=== PATIENT | female | born 1935 | race Caucasian/White ===

== ENCOUNTER 2020-02-17 10:35 | Outpatient (CLI) | payer MEDICARE, SELFPAY ==
--- NOTE | ~2020-02-17 | XR_ITS ---
XR abdomen/kub 1V DATE: 02/17/2020 10:57 INDICATION: Kidney calculus TECHNIQUE: AP projection, 2 views COMPARISON: 02/17/[address] abdomen pelvis FINDINGS: There is an approximately 7 x 12 mm calcified density overlying the left ureter pelvic junc tion area, corresponding to the left ureter pelvic junction calculus noted on the current CT abdomen pelvis. There is gaseous distention of some of the colon, particularly the sigmoid colon, without apparent ob struction. No intraperitoneal free air is evident. No visceromegaly is detected. IMPRESSION: Approximately 7 x 12 millimeter calcified calculus at left ureteropelvic junction Reviewed, dictated and finalized at [facility]. Reviewed, dictated and finalized at location B. IMPRESSION: Approximately 7 x 12 millimeter calcified calculus at left ureterop elvic junction
--- NOTE | ~2020-02-17 | CT_ITS ---
EXAMINATION: CT abdomen pelvis wo con DATE: 02/17/2020 11:11 INDICATION: Kidney calculus TECHNIQUE: Computed tomography (CT) of the abdomen and pelvis was performed without intravenous contr ast. Automated exposure control and iterative reconstruction technique were employed. Exam dose: 978 .75 mGy-cm total exam DLP. COMPARISON: 02/17/2020 KUB FINDINGS: Heart size is within normal range. Coronary artery calcification. 4 mm probable calcified right lower lobe pulmonary granuloma (series 4 image 1). Several millimeter p robable calcified pulmonary granuloma at the left posterior costophrenic gutter. There is mild discoi d atelectasis or scarring at the lung bases. No basilar consolidation. Status post cholecystectomy. No hepatic space-occupying mass lesion or intrahepatic or extrahepatic b ile duct dilatation. No pancreatic mass lesion, calcification or ductal dilatation. Normal splenic si ze. Normal morphology of the adrenal glands. There is a nonobstructing 3 mm right renal calculus. There is an approximately 7 x 8 x 12 mm left ureteropelvic junction calculus with attenuation of appr oximately 1280 Hounsfield units. There are bilateral parapelvic renal cysts. There is a very small right renal cortical cyst. There is atherosclerotic calcification of the abdominal aorta and particularly at the origin of the s uperior mesenteric artery as well as celiac trunk. Calcifications at the origins of the renal arterie s. No abdominal aortic aneurysm. No intraperitoneal or retroperitoneal or pelvic mass lesion or adeno helene or ascites. Status post hysterectomy. The urinary bladder is unremarkable. No bowel obstruction, bowel wall thickening, pneumatosis or intraperitoneal free air. There is diffuse idiopathic skeletal hyperostosis of the thoracic spine. There is severe degenerative disease and mild retrolisthesis at L5-S1. There is moderately severe deg enerative disc disease at L4-5 with grade 1 anterolisthesis secondary to apophyseal joint degenerativ e changes. Osteopenia. IMPRESSION: 7 x 8 x 12 moderate left ureteropelvic junction calculus (1280 Hounsfield units). Nonobstructing 3 mm right renal calculus Bilateral parapelvic renal cysts, small right cortical cyst Status post hysterectomy Status post cholecystectomy Reviewed, dictated and finalized at [facility]. Reviewed, dictated and finalized at location B. IMPRESSION: 7 x 8 x 12 moderate left ureteropelvic junction calculus (1280 Stormy nsfield units). Nonobstructing 3 mm right renal calculus Bilateral parapelvic renal cysts, small right cortical cyst Status post hysterectomy Status post cholecystectomy
== END 2020-02-17 10:36 | disposition home or self-care (01) ==
PROVIDERS: PCP Internal Medicine; Visit Provider Urology
DX: N28.1 Cyst of kidney, acquired (principal); N20.2 Calculus of kidney with calculus of ureter; Z90.49 Acquired absence of other specified parts of digestive tract
CPT/HCPCS: 74018; 74176

== ENCOUNTER 2020-05-04 00:58 | Outpatient (CLI) | payer MEDICARE, SELFPAY ==
[2020-05-04 19:19] LABS: SARS-CoV-2 RNA PCR Negative
== END 2020-05-04 00:59 | disposition home or self-care (01) ==
LOC: ANHCOVIDDT 00:58
PROVIDERS: PCP Internal Medicine; Visit Provider Urology
DX: Z01.812 Encounter for preprocedural laboratory examination (principal); Z20.828 Contact with and (suspected) exposure to other viral communicable diseases
CPT/HCPCS: 87635; C9803; U0003

== ENCOUNTER 2020-05-06 00:14 | Day surgery (SDC) | payer MEDICARE, SELFPAY ==
[2020-04-27 12:49] VITALS: BMI 40.4
--- NOTE | 2020-04-30 11:40 | PM.IMHP ---
H&P: HPI History of Present Illness Date/Time: 04/30/20 11:40 Chief complaint: Left Renal Stone Narrative: Marium Vera is a 84 year old female with a 12mm Left UPJ stone Review of Systems Review of Systems: All systems reviewed & are unremarkable except as noted in HPI and below PMFSH Social History Social History Smoking status: Never smoker Alcohol intake: never Substance use: never Spiritual care concerns: No Meds Home Medications and Allergies Home Medications Medication Instructions Recorded Confirmed Type metoprolol tartrate 50 mg PO HS 04/27/20 04/27/20 History metoprolol tartrate 100 mg PO QAM 04/27/20 04/27/20 History simvastatin 40 mg PO HS 04/27/20 04/27/20 History trospium 20 mg PO BID 04/27/20 04/27/20 History Allergies Allergy/AdvReac Type Severity Reaction Status Date / Time acyclovir [From Zovirax] AdvReac Unknown Unverified 04/27/20 13:27 ceftriaxone [From Rocephin] AdvReac Unknown Unverified 04/27/20 13:27 ciprofloxacin [From Cipro] AdvReac Unknown Unverified 04/27/20 13:27 doxycycline AdvReac Unknown Unverified 04/27/20 13:27 mirabegron [From Myrbetriq] AdvReac Unknown Unverified 04/27/20 13:27 moxifloxacin [From Avelox] AdvReac Unknown Unverified 04/27/20 13:27 nitrofurantoin AdvReac Unknown Unverified 04/27/20 13:27 Exam Const: General: no acute distress HENMT: Mouth: Yes moist mucous membranes Eyes: EOM: EOMs intact bilaterally Neck: Neck: supple Resp: Effort & Inspection: normal respiratory effort GI: GI Palp: Yes Soft to palpation Skin: General skin exam: no rashes or lesions noted Neuro: General: gait normal Extrem: General: normal to inspection Psych: Affect: normal affect Assessment and Plan Assessment and plan (1) Obstruction of left ureteropelvic junction (UPJ) due to stone: Code(s): N20.1 - Calculus of ureter Status: Acute Assessment and Plan: Left ESWL with stent
[2020-05-06] VITALS (7 sets, daily range): BP systolic 135–177; BP diastolic 48–79; PULSE 52–59; RESP 10–20; TEMP 36.2–36.9; O2SAT 95–100
--- NOTE | ~2020-05-06 | XR_ITS ---
EXAMINATION: XR abdomen/kub 1V DATE: 05/06/2020 11:43 INDICATION: Left renal stone for prelithotripsy evaluation. TECHNIQUE: A supine view of the abdomen on 2 radiographs was obtained. COMPARISON: CT and KUB dated 02/17/2020 FINDINGS: 11 x 6 mm stone remains at the left ureteropelvic junction. A few linear atherosclerotic calcificatio ns in the pelvis. Cholecystectomy clips in right upper quadrant. Scattered gas and stool in the colon . No dilated gas-filled loops of bowel to suggest obstruction. Moderate lumbar spondylosis. IMPRESSION: 1. Unchanged 11 x 6 mm stone at the left ureteropelvic junction. Reviewed, dictated and finalized at location A.
--- NOTE | 2020-05-06 07:28 | WPDHPUPDATE1 ---
History and Physical Update Update Date/Time: 05/06/20 07:28 History and Physical has been reviewed, including an updated exam of the patient. There are NO changes in the patient's condition. Risks, benefits, and alternatives have been discussed and questions answered. Patient agrees to proceed with procedure.
[2020-05-06] MEDS: LACTATED RINGERS 1,000 ML 30 ML IV CONT ×2 (12:30→14:55)
--- NOTE | 2020-05-06 13:14 | WPDANESEPPF ---
Anes - Initial Pre Proc Eval Procedure: Operation Date: 05/06/20 13:30 Proposed Procedures p Left Renal Extracorporeal Shock Wave Lithotripsy, Left Stent Placement - Rusty Sparks MD Date/Time: 05/06/20 13:14 Surgeon: Rusty Sparks MD Pre Op Diagnosis: Left Renal Stone Patient Data Age: 84 Gender: F Height: 5 ft 6 in Weight: 118.6 kg Last Vital Signs Temp 36.9 C 05/06/20 12:30 Pulse 54 L 05/06/20 12:30 Resp 18 05/06/20 12:30 BP 135/48 L 05/06/20 12:30 Pulse Ox 95 05/06/20 12:30 Allergies Allergy/AdvReac Type Severity Reaction Status Date / Time acyclovir [From Zovirax] AdvReac Unknown Unverified 05/06/20 12:48 ceftriaxone [From Rocephin] AdvReac Unknown Unverified 05/06/20 12:48 ciprofloxacin [From Cipro] AdvReac Unknown Unverified 05/06/20 12:48 doxycycline AdvReac Unknown Unverified 05/06/20 12:48 mirabegron [From Myrbetriq] AdvReac Unknown Unverified 05/06/20 12:48 moxifloxacin [From Avelox] AdvReac Unknown Unverified 05/06/20 12:48 nitrofurantoin AdvReac Unknown Unverified 05/06/20 12:48 Home Medications Medication Instructions Recorded Confirmed Type metoprolol tartrate 50 mg PO HS 04/27/20 04/27/20 History metoprolol tartrate 100 mg PO QAM 04/27/20 04/27/20 History simvastatin 40 mg PO HS 04/27/20 04/27/20 History trospium 20 mg PO BID 04/27/20 04/27/20 History cephalexin 500 mg PO Q12H #10 cap 05/06/20 Rx hydrocodone-acetaminophen [[place]] 1 tablet PO Q4H PRN #20 tablet 05/06/20 Rx Patient hx anesthesia problems: none Family hx anesthesia problems: none PMFSH Past Medical History Medical History (Updated 05/06/20 @ 13:14 by Scott Gonzalez MD) HTN (hypertension) Hyperlipidemia Morbid obesity Social History Social History Smoking status: Never smoker Alcohol intake: never Substance use: never Living arrangements: with family Spiritual care concerns: No Anes - Eval Final PreProcedure Day of Procedure 05/06/20 13:14 Patient weight: morbidly obese Heart: regular rate and rhythm Lungs: clear to auscultation Airway: Mallampati scale class III and other (upper denture) Neurological: alert and oriented Last oral intake: >/= 8 hours ASA classification: III Emergent: no Anesthetic plan: proceed Anesthesia type and monitoring: general LMA and standard monitoring Informed Consent: The patient's anesthetic plan and its attendant risks and benefits were discussed with the patient/family/POA. Questions were solicited and answers provided to the satisfaction of the patient/family/POA.
[2020-05-06] MEDS: ceFAZolin 2 GM/D5W 50 ML 2 GM/50 ML BAG IVPB (14:02)
[2020-05-06] MEDS: fentaNYL CITRATE INJ (*CRX) 100 MCG/2 ML VIAL 25 MCG IV PUSH (15:32)
--- NOTE | 2020-05-06 16:39 | PM.PROC ---
Procedure Note - Detailed Date of procedure: 05/06/20 Pre-op diagnosis: Left Renal Stone Post-op diagnosis: same Procedure performed: Cystoscopy with left ureteral stent placement left extracorporeal shockwave lithotripsy Description of procedure: distal with recurrent urinary tract infections and a larger than 1 cm left renal pelvic stone. She is here today for lithotripsy. We will place a stent due to her possible infection stone risk. She was pretreated with culture specific antibiotics she understands risks of bleeding, infection, inability to break the stone. She agrees to proceed. She also understands that clearance of the stone may not solve her issues with recurrent infections.Of note Dr. Anderson and myself for both available for this case. she is correctly identified and informed consent obtained. She from the operating room. She is given general anesthesia. She was prepped and draped in a sterile fashion. Time-out performed. Using a flexible cystoscope a 4.8 variable length stent was placed with the proximal coil in the renal pelvis. Distal coil in the bladder. She was then repositioned for lithotripsy. The stone was targeted fluoroscopy. Lithotripsy was delivered. Two thousand five hundred shocks total. Power level 4. There appeared to be good fragmentation of the stone. At the end she was awakened and transferred to the PACU in stable condition. Anesthesia: GLMA Surgeon: Rusty Sparks MD Estimated blood loss (mL): 0 Drains: Yes ( Stent in place) Packing: No Pathology: none sent Condition: stable Disposition: PACU
[2020-05-06] MEDS: ONDANSETRON INJ 4 MG/2 ML VIAL IV PUSH (16:46)
--- NOTE | 2020-05-06 17:12 | SUR.PHASEII ---
MARK FROM ANESTHESIOLOGY NOTIFIED RE: PT'S BP 183/79; PT INSTRUCTED TO TAKE BP MEDICINE ONCE SHE'S HOME; MARK OKAY'D PT TO GO HOME.
== END 2020-05-06 17:14 | disposition home or self-care (01) ==
PROVIDERS: PCP Internal Medicine; Visit Provider Urology
PROC: (CPT 50590; principal; 2020-05-06 13:30)
DX: N20.1 Calculus of ureter (principal); I10 Essential (primary) hypertension; E78.5 Hyperlipidemia, unspecified; E66.01 Morbid (severe) obesity due to excess calories; Z68.41 Body mass index [BMI] 40.0-44.9, adult
CPT/HCPCS: 50590; 52332; 74018; A9270; C1769; C2617; J0690; J2405; J2704; J3010; J7030; J7120; Q9966

== ENCOUNTER 2020-05-23 14:34 | Outpatient (CLI) | payer MEDICARE, SELFPAY ==
--- NOTE | ~2020-05-23 | XR_ITS ---
XR abdomen/kub 1V 05/23/2020 15:03 Indication: Post lithotripsy. Left renal stones. Procedure: KUB Comparison: 05/06/2020 Findings: Moderate gas in bowel content overlying the kidneys limiting evaluation. There is a left in ternal ureteral stent in expected position. There is a stone overlying the proximal coil of the stent . There are pelvic calcifications, likely phleboliths. There are cholecystectomy clips. Nonobstructiv e bowel gas pattern. Moderate lumbar spondylosis. Impression: 1: Left nephrolithiasis with internal ureteral stent in expected position. Reviewed, dictated and finalized at location A. Impression: 1: Left nephrolithiasis with internal ureteral stent in expected position.
== END 2020-05-23 14:35 | disposition home or self-care (01) ==
LOC: ANHIMG 14:48
PROVIDERS: PCP Internal Medicine; Visit Provider Urology
DX: N20.0 Calculus of kidney (principal)
CPT/HCPCS: 74018

== ENCOUNTER 2020-06-01 00:23 | Outpatient (CLI) | payer MEDICARE, SELFPAY ==
[2020-06-02 03:00] LABS: SARS-CoV-2 RNA PCR Negative
== END 2020-06-01 00:24 | disposition home or self-care (01) ==
LOC: ANHCOVIDDT 00:23
PROVIDERS: PCP Internal Medicine; Visit Provider Urology
DX: Z01.812 Encounter for preprocedural laboratory examination (principal); Z20.828 Contact with and (suspected) exposure to other viral communicable diseases
CPT/HCPCS: 87635; C9803; U0003

== ENCOUNTER 2020-06-03 19:11 | Inpatient (IN) | payer MEDICARE, SELFPAY ==
[2020-05-30 15:36] VITALS: BMI 39.9
--- NOTE | 2020-06-02 12:46 | P.PNAN_ITS ---
Anes - Initial Pre Proc Eval Procedure: Operation Date: 06/03/20 13:30 Proposed Procedures p Cystoscopy, Left Ureteroscopy, Left Stone Extraction - Carlin Anderson MD Date/Time: 06/02/20 12:46 Surgeon: Carlin Anderson MD Pre Op Diagnosis: Left Ureteral Stone Patient Data Age: 84 Gender: F Height: 1.68 m Weight: 112.05 kg Allergies Allergy/AdvReac Type Severity Reaction Status Date / Time acyclovir [From Zovirax] AdvReac RASH/HIVES Unverified 06/03/20 11:46 ceftriaxone [From Rocephin] AdvReac Hives/RASH Unverified 06/03/20 11:46 ciprofloxacin [From Cipro] AdvReac HIVES/RASH Unverified 06/03/20 11:46 doxycycline AdvReac HIVES/RASH Unverified 06/03/20 11:46 mirabegron [From Myrbetriq] AdvReac Unknown Unverified 06/03/20 11:46 moxifloxacin [From Avelox] AdvReac Unknown Unverified 06/03/20 11:46 nitrofurantoin AdvReac RASH/HIVES Unverified 06/03/20 11:46 Home Medications Medication Instructions Recorded Confirmed Type metoprolol tartrate 50 mg PO HS 04/27/20 06/03/20 History metoprolol tartrate 100 mg PO QAM 04/27/20 06/03/20 History simvastatin 40 mg PO HS 04/27/20 06/03/20 History trospium 20 mg PO BID 04/27/20 06/03/20 History hydrocodone-acetaminophen [[place]] 1 tablet PO Q4H PRN #20 tablet 05/06/20 06/03/20 Rx Patient hx anesthesia problems: none Family hx anesthesia problems: none PMFSH Past Medical History Medical History (Updated 06/02/20 @ 12:47 by Guille Sy MD) Arthritis HTN (hypertension) Hyperlipidemia Morbid obesity Social History Social History Smoking status: Never smoker Alcohol intake: never Substance use: never Living arrangements: with family Spiritual care concerns: No Anes - Eval Final PreProcedure Day of Procedure 06/02/20 12:46 Patient weight: obese Heart: regular rate and rhythm Lungs: clear to auscultation and normal air movement Airway: Mallampati scale class II Neurological: alert and oriented Last oral intake: >/= 8 hours ASA classification: III Emergent: no Anesthetic plan: proceed Anesthesia type and monitoring: general LMA and ETT Informed Consent: The patient's anesthetic plan and its attendant risks and benefits were discussed with the patient/family/POA. Questions were solicited and answers provided to the satisfaction of the patient/family/POA.
[2020-06-03] VITALS (28 sets, daily range): BP systolic 86–187; BP diastolic 47–117; PULSE 57–92; RESP 10–27; TEMP 36.1–38.4; O2SAT 20–100
--- NOTE | ~2020-06-03 | XR_ITS ---
EXAMINATION: XR retrograde pyelo w/stent LT DATE: 06/03/2020 15:25 INDICATION: Renal stone extraction TECHNIQUE: 206 fluoroscopic images of the abdomen and pelvis were obtained during procedure performed by Dr. Anderson. Radiologist was not present for the imaging or procedure. The amount of fluoroscopy t anai used during this procedure was 2.5 minutes. COMPARISON: KUB dated 05/23/2020 FINDINGS: Lozenge Maker Helper images redemonstrate a left internal ureteral stent with distal loop formed at the bladder and the density representing a renal stone positioned within the proximal loop likely at the left renal p kalie. Cholecystectomy clips in right upper quadrant. Subsequent images demonstrate initially advance ment of a catheter into the distal left ureter but perforating along the midureter with initial contr ast injection excising into the retroperitoneal tissues. Subsequent images demonstrate successful adv ancement of the catheter beyond the perforation with the distal tip in the left renal pelvis. Contras t injection demonstrates mild left hydronephrosis along with a filling defect likely representing the stone at the left renal pelvis. The stone is not visualized on the final images which demonstrate pl acement of a new left internal ureteral stent with proximal tip extending into the upper pole calyx o f the left kidney and with distal tip coiled in the bladder. IMPRESSION: 1. Fluoroscopy utilized during reported fragmentation of a stone at the left renal pelvis with iatrog enic perforation of the mid left ureter during the procedure. The location of the perforation is succ essfully spanned by a new left internal ureteral stent which is in expected position at the conclusio n of the procedure. See procedure note for further detail. Reviewed, dictated and finalized at location A. WEBSPH[employer] PORTAL DEVELOPER IMPRESSION: 1. Fluoroscopy utilized during reported fragmentation of a stone at the left re nal pelvis with iatrogenic perforation of the mid left ureter during the proced ure. The location of the perforation is successfully spanned by a new left inte rnal ureteral stent which is in expected position at the conclusion of the proc edure. See procedure note for further detail.
--- NOTE | ~2020-06-03 | XR_ITS ---
EXAMINATION: XR chest 1V portable DATE: 06/03/2020 17:33 INDICATION: Shortness of breath. TECHNIQUE: A single frontal view of the chest was obtained. COMPARISON: CT abdomen and pelvis 02/17/2020 FINDINGS: Sensitivity is decreased by obesity. A calcified right lung nodule is consistent with old g ranulomatous disease. There is mild atelectasis in right perihilar region. No pleural effusion or pne umothorax. The heart size is normal. IMPRESSION: 1. Mild atelectasis in right perihilar region. Reviewed, dictated and finalized at location A. WARE RELEASE MANAGER
--- NOTE | 2020-06-03 06:33 | WPDHPUPDATE1 ---
History and Physical Update Update Date/Time: 06/03/20 06:33 History and Physical has been reviewed, including an updated exam of the patient. There are NO changes in the patient's condition. Risks, benefits, and alternatives have been discussed and questions answered. Patient agrees to proceed with procedure.
[2020-06-03] MEDS: LACTATED RINGERS 1,000 ML 30 ML IV CONT (12:10)
[2020-06-03] MEDS: ceFAZolin 2 GM/D5W 50 ML 2 GM/50 ML BAG IVPB (14:03)
--- NOTE | 2020-06-03 15:10 | PM.PROC ---
Procedure Note - Detailed Date of procedure: 06/03/20 Pre-op diagnosis: Left Ureteral Stone Post-op diagnosis: same Procedure performed: 1. Cystoscopy with left stent removal and replacement 2. Laser lithotripsy left renal stone Description of procedure: Patient is brought to the operatory she has prepped draped in routine sterile fashion while in dorsal lithotomy position after the uneventful induction of a general LMA anesthetic. Nineteen F rigid cystoscope was placed in her bladder in the tip of the indwelling stent is grasped. The stent is brought to the external urethral meatus and a 0.035 in glidewire was advanced in the left renal pelvis under fluoroscopy. The distal ureter was dilated with an 8 F 10 F dilator and a 12 F 14 F ureteral access sheath is placed. With flexible ureteroscopy I can see that there is a small rent in the medial aspect of the left ureter created by the access sheath. I placed a 7.5 F flexible ureteral scope in the left renal pelvis. Her stone is easily visualized in fractured into tiny pieces using a dusting mass in with a 273 micron holmium laser fiber at a frequency of 15 and a power of 5 joules. Stone was fragmented tiny pieces, many of which washed out spontaneously. Because of the ureteral trauma I opted not to retrieve these pieces but simply replace the 4.8 F variable length stent with the proximal coil in the renal pelvis and distal coil in the bladder. Scopes were was removed. Patient tolerated procedure well was taken recovery in good condition is presenting with ic Surgeon: Carlin Anderson MD Estimated blood loss (mL): 0 Drains: Yes (4.8F left ureteral stent) Packing: No Pathology: none sent Complications: No immediate complications Condition: stable Disposition: PACU
[2020-06-03] MEDS: ONDANSETRON INJ 4 MG/2 ML VIAL IV PUSH (15:49)
[2020-06-03] MEDS: fentaNYL CITRATE INJ (*CRX) 100 MCG/2 ML VIAL 25 MCG IV PUSH (16:10)
[2020-06-03] MEDS: PROMETHAZINE HCL 25 MG/ML AMPUL 12.5 MG IV PUSH (16:20)
--- NOTE | 2020-06-03 17:10 | PM.IMHP ---
H&P: HPI History of Present Illness Date/Time: 06/03/20 17:10 Chief complaint: Left Ureteral Stone Narrative: Marium Vera is a 84 year old female who is known to our practice having undergone ESWL 1 month ago for a 12 mm left renal pelvic stone. Time of the procedure she had an indwelling ureteral stent. Postoperatively she reported a 2 to three-day history of atypical abdominal discomfort just generalized feeling poorly. Unfortunately, stone fragmented little, if any, following that procedure and she now presents for ureteroscopy with laser lithotripsy. With dilatation of the ureter and placement of a access sheaths there was a short noticeable tear in the medial aspect of her left ureter. Otherwise the ureteroscopy was undertaken complete fragmentation of the renal pelvic stone. Thereafter a stent ureteral stent was placed. Again, as before, she had long somnolence in the PACU she was not hypoxic and demonstrated no cardiac arrhythmias. She had no complaints of abdominal pain this time did report some atypical bilateral back pain. Because of her marked somnolence decision was made to admit her overnight. Review of Systems Cardiovascular: Cardiovascular: Denies chest pain, Denies lightheadedness, Denies palpitations and Denies dyspnea Respiratory: Respiratory: Denies dyspnea Gastrointestinal: Gastrointestinal: Denies diarrhea, Denies nausea and Denies vomiting Genitourinary: Genitourinary: Denies hematuria and Denies dysuria Endocrine: Endocrine: Denies palpitations PMFSH Past Medical History Medical History Arthritis HTN (hypertension) Hyperlipidemia Morbid obesity Social History Social History Smoking status: Never smoker Alcohol intake: never Substance use: never Living arrangements: with family Spiritual care concerns: No Meds Home Medications and Allergies Home Medications Medication Instructions Recorded Confirmed Type metoprolol tartrate 50 mg PO HS 04/27/20 06/03/20 History metoprolol tartrate 100 mg PO QAM 04/27/20 06/03/20 History simvastatin 40 mg PO HS 04/27/20 06/03/20 History trospium 20 mg PO BID 04/27/20 06/03/20 History hydrocodone-acetaminophen [[place]] 1 tablet PO Q4H PRN #20 tablet 05/06/20 06/03/20 Rx cephalexin 500 mg PO Q8H #15 cap 06/03/20 Rx hydrocodone-acetaminophen 1 - 2 tablet PO Q6H PRN #30 tablet 06/03/20 Rx Allergies Allergy/AdvReac Type Severity Reaction Status Date / Time acyclovir [From Zovirax] AdvReac RASH/HIVES Unverified 06/03/20 11:46 ceftriaxone [From Rocephin] AdvReac Hives/RASH Unverified 06/03/20 11:46 ciprofloxacin [From Cipro] AdvReac HIVES/RASH Unverified 06/03/20 11:46 doxycycline AdvReac HIVES/RASH Unverified 06/03/20 11:46 mirabegron [From Myrbetriq] AdvReac Unknown Unverified 06/03/20 11:46 moxifloxacin [From Avelox] AdvReac Unknown Unverified 06/03/20 11:46 nitrofurantoin AdvReac RASH/HIVES Unverified 06/03/20 11:46 Vital Signs Vital Signs - 24 hr 06/03/20 11:38 06/03/20 15:12 06/03/20 15:27 Temperature 98.0 F 97 F L Pulse Rate 58 L 57 L 57 L Respiratory Rate 18 16 10 L Blood Pressure 151/65 H 165/81 H 180/81 H Pulse Oximetry 97 100 100 06/03/20 15:45 06/03/20 16:00 06/03/20 16:15 Temperature 97.5 F L 97.2 F L Pulse Rate 68 68 74 Respiratory Rate 23 H 22 H 25 H Blood Pressure 187/92 H 162/117 H 147/117 H Pulse Oximetry 20 L 90 94 06/03/20 16:30 06/03/20 16:44 06/03/20 17:00 Temperature 99.7 F H Pulse Rate 74 77 84 Respiratory Rate 24 H 25 H 22 H Blood Pressure 86/63 L 162/111 H 164/62 H Pulse Oximetry 93 95 Exam Const: General: no acute distress Resp: Effort & Inspection: normal respiratory effort GI: Inspection: non-distended GI Palp: No abdominal tenderness and No Guarding due to palpation present (GI) Auscultation: normal bowel sounds Assessment and Plan Assessment and plan (1
[2020-06-03] MEDS: KETOROLAC 15 MG/ML VIAL (*BKC) IV PUSH (18:41)
[2020-06-03] MEDS: DEXTROSE 5%/LACTATED RINGERS 1,000 ML 125 ML IV CONT (20:10)
--- NOTE | 2020-06-03 21:03 | PM.IMCN ---
Assessment and Plan Assessment and plan (1) Obstruction of left ureteropelvic junction (UPJ) due to stone: Code(s): N20.1 - Calculus of ureter Status: Acute Assessment and Plan: s/p Lithotripsy and stent replacement. Continue Urology recommendations. (2) Sepsis: Qualifiers: Sepsis acute organ dysfunction status: without acute organ dysfunction Sepsis type: sepsis due to unspecified organism Qualified Code(s): A41.9 - Sepsis, unspecified organism Code(s): A41.9 - Sepsis, unspecified organism Status: Acute Assessment and Plan: w/ fever and tachypnea - Check CBCd, blood cultures, urinalysis w/ reflex culture, lactic acid. Continue antibiotics that were started by Urology. Monitor vital signs and urine output. Monitor acid-base status. (3) Arthritis: Code(s): M19.90 - Unspecified osteoarthritis, unspecified site Status: Acute Assessment and Plan: Continue pain control as needed. (4) HTN (hypertension): Qualifiers: Hypertension type: unspecified Qualified Code(s): I10 - Essential (primary) hypertension Code(s): I10 - Essential (primary) hypertension Status: Chronic Assessment and Plan: Monitor blood pressure. We will resume metoprolol in am. (5) Hyperlipidemia: Qualifiers: Hyperlipidemia type: unspecified Qualified Code(s): E78.5 - Hyperlipidemia, unspecified Code(s): E78.5 - Hyperlipidemia, unspecified Status: Chronic Assessment and Plan: Resume simvastatin PO. (6) Morbid obesity: Code(s): E66.01 - Morbid (severe) obesity due to excess calories Status: Chronic Assessment and Plan: The patient will need to be counseled on healthy lifestyle choices when she is more awake and alert. Additional Plan Date of service was 06/03/2020 at 20:30 hrs. HPI Data of Consult Consult date: 06/04/20 Requesting Physician: Carlin Anderson MD Primary Care Provider: Joey EnglandMD Consult Narrative Narrative: Thank you for consulting us to see this 84-year-old female with known history of hypertension, hyperlipidemia, and renal stones who underwent cystoscopy with left stent removal and replacement as well as laser lithotripsy of a 12 mm left renal stone. After the patient had the procedure done she was found to be somnolent in the PACU and urology decided to admit the patient overnight. On my encounter with the patient tamra she does appear to have a low-grade fever of 99? F. Vital signs appear to be stable and the patient is very somnolent. she is arousable to painful stimuli and currently denies any specific symptoms. She denies any shortness of breath, chest pain, nausea, vomiting, headache, abdominal pain, or focal neurological deficits at this time. We have been asked to evaluate the patient for medical management. Review of Systems Review of Systems: All systems reviewed & are unremarkable except as noted in HPI and below PMFSH Past Medical History Medical History (Updated 06/03/20 @ 21:22 by Abisai Cruz MD) Arthritis HTN (hypertension) Hyperlipidemia Morbid obesity Family History Family History Other Cancer Diabetes mellitus Heart disease Hypertension Social History Social History Smoking status: Never smoker Alcohol intake: never Substance use: never Substance use type: does not use Living arrangements: with family Gender identity (if verbalized by the patient): Female Sexual Orientation (if Verbalized by the Patient): Straight or Heterosexual Spiritual care concerns: No Meds Home Medications and Allergies Home Medications Medication Instructions Recorded Confirmed Type metoprolol tartrate 50 mg PO HS 04/27/20 06/03/20 History metoprolol tartrate 100 mg PO QAM 04/27/20 06/03/20 History
[2020-06-03] MEDS: SIMVASTATIN 20 MG TABLET 40 MG PO (22:46)
[2020-06-03] MEDS: METOPROLOL TARTRATE 50 MG TAB PO (22:46)
--- NOTE | 2020-06-03 23:49 | ADMGEN ---
This patient, Marium Vera, was admitted to IMU Room 203-01 from PACU on 06/03/20 at 1936. Patient/family oriented to hospital policies and general routines including ID bracelet, bed and alarms, visiting hours, pain management, procedures, bathroom and other care routines, personal items, smoking policy, room service/diet, and visiting hours. Information on how to activate the Rapid Response Team has been discussed. Patient/Family are encouraged to report perceived risks to care and to ask questions if they do not understand what they are told or what they should do.
[2020-06-03 23:55] LABS: Hematocrit 37.2 % (37.0-47.0); Hemoglobin 12.3 g/dL (12.0-15.0); Mean Corpuscular HGB Conc 33.1 g/dl (32-36); Mean Corpuscular Hemoglobin 30.5 pg (26-34); Mean Corpuscular Volume 92.3 fl (80-100); Mean Platelet Volume 10.4 fl (7.4-10.4); Platelet Count Result 147 k/mm3 (150-375); Red Blood Count 4.03 M/mm3 (4.2-5.4); Red Cell Distribution Width 14.1 % (11.5-14.5); White Blood Count 12.9 K/mm3 (4.5-10.0)
[2020-06-04] VITALS (17 sets, daily range): BP systolic 100–126; BP diastolic 40–56; PULSE 69–93; RESP 18–24; TEMP 36.6–37.9; O2SAT 92–96
[2020-06-04 00:07] LABS: Band Neutrophils Percent 13 % (0-6); Lymphocytes Absolute Manual 0.38 K/mm3 (1.1-4.5); Metamyelocytes Percent 1 %; Monocytes Absolute Manual 0.38 K/mm3 (0.1-0.90); Monocytes Percent Manual 3 % (3-9); Neutrophils Absolute Manual 11.99 K/mm3 (1.7-7.2); Neutrophils Percent Manual 80 % (46-73); Platelet Estimate Adequate (Adequate); Total Cells Counted 100
[2020-06-04 00:08] LABS: Anion Gap 7 mmol/L (8-16); Blood Urea Nitrogen 24 mg/dL (7-17); Calcium 8.2 mg/dL (8.4-10.2); Carbon Dioxide 24 mmol/L (22-30); Chloride 109 mmol/L (98-107); Estimated CRCL calculation 5 ml/min; Estimated Glomerular Filt Rate 39; Glucose 121 mg/dL (65-105); Lactic Acid Reflex 3.1 mmol/L (0.7-2.1); Magnesium 1.5 mg/dL (1.6-2.3); Potassium 3.5 mmol/L (3.4-5.0); Sodium 140 mmol/L (137-145)
[2020-06-04 02:49] LABS: Reflex Lactic Acid Yes or No Add Lactic
[2020-06-04] MEDS: MAGNESIUM SULF 2 GM/WATER 50ML 2 GM/50 ML BAG IVPB (03:24)
[2020-06-04 04:27] LABS: Hematocrit 36.3 % (37.0-47.0); Hemoglobin 11.9 g/dL (12.0-15.0); Mean Corpuscular HGB Conc 32.8 g/dl (32-36); Mean Corpuscular Hemoglobin 30.1 pg (26-34); Mean Corpuscular Volume 91.9 fl (80-100); Mean Platelet Volume 10.7 fl (7.4-10.4); Platelet Count Result 149 k/mm3 (150-375); Red Blood Count 3.95 M/mm3 (4.2-5.4); Red Cell Distribution Width 14.2 % (11.5-14.5); White Blood Count 19.4 K/mm3 (4.5-10.0)
[2020-06-04 04:39] LABS: Lactic Acid 3.1 mmol/L (0.7-2.1)
[2020-06-04 04:41] LABS: Anion Gap 6 mmol/L (8-16); Blood Urea Nitrogen 26 mg/dL (7-17); Calcium 8.2 mg/dL (8.4-10.2); Carbon Dioxide 26 mmol/L (22-30); Chloride 107 mmol/L (98-107); Estimated CRCL calculation 5 ml/min; Estimated Glomerular Filt Rate 33; Glucose 128 mg/dL (65-105); Potassium 3.3 mmol/L (3.4-5.0); Sodium 139 mmol/L (137-145)
[2020-06-04] MEDS: ONDANSETRON INJ 4 MG/2 ML VIAL IV PUSH (04:52)
[2020-06-04 08:05] LABS: Appearance Urine Turbid (Clear); Bilirubin Urine 3+ (Negative); Blood Urine 3+ (Negative); Glucose Urine UA Trace mg/dL (Negative); Ketones Urine 2+ mg/dL (Negative); Leukocyte Esterase Ur 3+ LEU/UL (Negative); Nitrate Urine Positive (Negative); Protein Urine 3+ mg/dL (Negative); pH Urine 8.5 (5.0-9.0)
--- NOTE | 2020-06-04 08:25 | WPDUROPN2 ---
Progress Note: A&P Assessment and Plan (1) Morbid obesity: Code(s): E66.01 - Morbid (severe) obesity due to excess calories Status: Chronic (2) Obstruction of left ureteropelvic junction (UPJ) due to stone: Code(s): N20.1 - Calculus of ureter Status: Acute (3) Sepsis: Qualifiers: Sepsis type: sepsis due to unspecified organism Sepsis acute organ dysfunction status: without acute organ dysfunction Qualified Code(s): A41.9 - Sepsis, unspecified organism Code(s): A41.9 - Sepsis, unspecified organism Status: Acute Assessment and Plan: Much improved this morning - much more alert/oriented. No specific complaints of abdominal or flank discomfort. Low-grade temp. and leukocytosis suggest underlying infectious process following endoscopic intervention yesterday. Remains on Ancef pending blood cultures. Subjective Subjective Date/Time Seen: 06/04/20 08:25 Looks much better this morning - tired/generalize ache but no c/o abodmiinal or flank discomfort Review of Systems Cardiovascular: Cardiovascular: Denies chest pain, Denies lightheadedness, Denies palpitations and Denies dyspnea Respiratory: Respiratory: Denies dyspnea Gastrointestinal: Gastrointestinal: Denies diarrhea, Denies nausea and Denies vomiting Genitourinary: Genitourinary: Denies hematuria and Denies dysuria Endocrine: Endocrine: Denies palpitations Exam Const: General: no acute distress Resp: Effort & Inspection: normal respiratory effort GI: Inspection: non-distended GI Palp: No abdominal tenderness and No Guarding due to palpation present (GI) Auscultation: normal bowel sounds Objective Data Vital Signs Vital Signs: Vital Signs - 24 hr 06/03/20 11:38 06/03/20 15:12 06/03/20 15:27 Temperature 98.0 F 97 F L Pulse Rate 58 L 57 L 57 L Respiratory Rate 18 16 10 L Blood Pressure 151/65 H 165/81 H 180/81 H Pulse Oximetry 97 100 100 06/03/20 15:45 06/03/20 16:00 06/03/20 16:15 Temperature 97.5 F L 97.2 F L Pulse Rate 68 68 74 Respiratory Rate 23 H 22 H 25 H Blood Pressure 187/92 H 162/117 H 147/117 H Pulse Oximetry 20 L 90 94 06/03/20 16:30 06/03/20 16:44 06/03/20 17:00 Temperature 99.7 F H Pulse Rate 74 77 84 Respiratory Rate 24 H 25 H 22 H Blood Pressure 86/63 L 162/111 H 164/62 H Pulse Oximetry 93 95 06/03/20 17:15 06/03/20 17:30 06/03/20 17:45 Temperature Pulse Rate 92 86 85 Respiratory Rate 21 H 27 H 22 H Blood Pressure 156/47 H 116/47 L 121/54 L Pulse Oximetry 94 95 94 06/03/20 18:00 06/03/20 18:15 06/03/20 18:30 Temperature 100.7 F H Pulse Rate 91 90 89 Respiratory Rate 22 H 24 H 23 H Blood Pressure 142/53 H 142/53 H 147/54 H Pulse Oximetry 93 94 94 06/03/20 18:45 06/03/20 19:00 06/03/20 19:45 Temperature Pulse Rate 91 88 87 Respiratory Rate 20 22 H 18 Blood Pressure 149/60 H 156/56 H Pulse Oximetry 94 96 96 06/03/20 19:49 06/03/20 19:56 06/03/20 20:01 Temperature 99.4 F Pulse Rate 87 86 86 Respiratory Rate 18 Blood Pressure 135/51 L Pulse Oximetry 96 06/03/20 20:04 06/03/20 20:34 06/03/20 21:34 Temperature 99.9 F H 100.3 F H 101.1 F H Pulse Rate 82 82 84 Respiratory Rate 18 20 20 Blood Pressure 124/53 L 121/52 L 117/51 L Pulse Oximetry 96 97 95 06/03/20 22:00 06/03/20 22:46 06/03/20 22:48 Temperature 101.1 F H Pulse Rate 83 82 Respiratory Rate Blood Pressure Pulse Oximetry 06/03/20 23:18 06/04/20 00:00 06/04/20 02:00 Temperature 97.8 F 97.8 F Pulse Rate 76 79 Respiratory Rate 20 Blood Pressure 100/43 L Pulse Oximetry 96 06/04/20 03:15 06/04/20 03:18 06/04/20 04:00 Temperature 99.1 F Pulse Rate 79 79 77 Respiratory Rate 24 H 24 H Blood Pressure 107/40 L Pulse Oximetry 93 93 06/04/20 06:00 06/04/20 07:58 Temperature 97.9 F Pulse Rate 85 85 Respiratory Rate 24 H Blood Pressure 114/45 L Pulse Oximetry 92 Intake/Output Intake/Output: Intake
[2020-06-04] MEDS: DOCUSATE SODIUM 100 MG CAPSULE PO ×2 (09:20→17:38)
[2020-06-04] MEDS: DEXTROSE 5%/LACTATED RINGERS 1,000 ML 125 ML IV CONT (09:23)
[2020-06-04 09:26] LABS: Add Urine Microscopic? YES; Color Urine Brown (Yellow); RBC Urine 51-75 /hpf (0-2)
[2020-06-04 09:27] LABS: Amorphous Sediment Urine Moderate
[2020-06-04] MEDS: POTASSIUM CHLORIDE 20 MEQ PACKET (FOR LIQUID) 40 MEQ PO (09:45)
[2020-06-04] MEDS: ENOXAPARIN 40 MG/0.4 ML SYRINGE SUB-Q (10:38)
[2020-06-04] MEDS: METOPROLOL TARTRATE 50 MG TAB 100 MG PO (10:39)
[2020-06-04] MEDS: ERTAPENEM 1 GM/NS 50 ML 1 GM/50 ML BAG IVPB (10:39)
--- NOTE | 2020-06-04 13:20 | PM.IMPN ---
Progress Note: A&P Assessment and Plan (1) Obstruction of left ureteropelvic junction (UPJ) due to stone: Code(s): N20.1 - Calculus of ureter Status: Acute Assessment and Plan: s/p Lithotripsy and stent replacement 06/03. Continue antibiotics and IV fluids. (2) Sepsis: Qualifiers: Sepsis type: sepsis due to unspecified organism Sepsis acute organ dysfunction status: without acute organ dysfunction Qualified Code(s): A41.9 - Sepsis, unspecified organism Code(s): A41.9 - Sepsis, unspecified organism Status: Acute Assessment and Plan: w/ fever and tachypnea -, blood cultures, pending but apparently no urine was obtained . Continue antibiotics that were started by Urology and and ertapenem to broaden the scope of coverage. (3) Arthritis: Code(s): M19.90 - Unspecified osteoarthritis, unspecified site Status: Acute Assessment and Plan: Continue pain control as needed. (4) HTN (hypertension): Qualifiers: Hypertension type: unspecified Qualified Code(s): I10 - Essential (primary) hypertension Code(s): I10 - Essential (primary) hypertension Status: Chronic Assessment and Plan: blood pressure adequate. resumed metoprolol this am and continue to hold HS metoprolol. (5) Hyperlipidemia: Qualifiers: Hyperlipidemia type: unspecified Qualified Code(s): E78.5 - Hyperlipidemia, unspecified Code(s): E78.5 - Hyperlipidemia, unspecified Status: Chronic Assessment and Plan: Resume simvastatin PO. (6) Morbid obesity: Code(s): E66.01 - Morbid (severe) obesity due to excess calories Status: Chronic Assessment and Plan: on going. (7) DVT prophylaxis: Code(s): Z29.9 - Encounter for prophylactic measures, unspecified Status: Acute Assessment and Plan: Lovenox and OT and PT to see to start mobilizing Subjective Date/time seen: 06/04/20 13:20 Interval history: date of visit 06/04 . 84-year-old hypertensive obese white female admitted after lithotripsy and stone extraction which she became less responsive 06/03. This a.m. more alert feeling better although still nauseated no abdominal or flank pain Exam Narrative: Exam Narrative: blood pressure 146/60 pulse is 72 saturating 95% on 1 L nasal cannula lungs clear but distant breath sounds and poor respiratory effort CV regular rate rhythm no murmurs abdomen is soft bowel sounds may be slightly decreased, nontender extremities no edema distal pulses 1+ neuro alert cooperative no focal deficits Objective Data Vital Signs Vital Signs: Vital Signs - 24 hr 06/03/20 15:12 06/03/20 15:27 06/03/20 15:45 Temperature 36.1 C L Pulse Rate 57 L 57 L 68 Respiratory Rate 16 10 L 23 H Blood Pressure 165/81 H 180/81 H 187/92 H Pulse Oximetry 100 100 20 L 06/03/20 16:00 06/03/20 16:15 06/03/20 16:30 Temperature 36.4 C L 36.2 C L Pulse Rate 68 74 74 Respiratory Rate 22 H 25 H 24 H Blood Pressure 162/117 H 147/117 H 86/63 L Pulse Oximetry 90 94 93 06/03/20 16:44 06/03/20 17:00 06/03/20 17:15 Temperature 37.6 C H Pulse Rate 77 84 92 Respiratory Rate 25 H 22 H 21 H Blood Pressure 162/111 H 164/62 H 156/47 H Pulse Oximetry 95 94 06/03/20 17:30 06/03/20 17:45 06/03/20 18:00 Temperature Pulse Rate 86 85 91 Respiratory Rate 27 H 22 H 22 H Blood Pressure 116/47 L 121/54 L 142/53 H Pulse Oximetry 95 94 93 06/03/20 18:15 06/03/20 18:30 06/03/20 18:45 Temperature 38.2 C H Pulse Rate 90 89 91 Respiratory Rate 24 H 23 H 20 Blood Pressure 142/53 H 147/54 H 149/60 H Pulse Oximetry 94 94 94 06/03/20 19:00 06/03/20 19:45 06/03/20 19:49 Temperature 37.4 C Pulse Rate 88 87 87 Respiratory Rate 22 H 18 18 Blood Pressure 156/56 H 135/51 L Pulse Oximetry 96 96 96 06/03/20 19:56 06/03/20 20:01 06/03/20 20:04 Temperature 37.7 C H Pulse Rate 86 86 82 Respiratory Rate 18 Blood P
--- NOTE | 2020-06-04 13:55 | WPDANESPN ---
Anes - Prog Note Post-Op Date/Time: 06/04/20 13:55 Cardiovascular status: normal Respiratory status: normal Airway patency: baseline Mental status: baseline Vital Signs: Last Vital Signs Temp 37.0 C 06/04/20 12:26 Pulse 93 06/04/20 12:26 Resp 24 H 06/04/20 12:26 BP 106/46 L 06/04/20 12:26 Pulse Ox 95 06/04/20 12:26 Pain Score (VAS): 08/07 I/O: Intake & Output 06/03/20 06/04/20 06/04/20 23:59 07:59 15:59 Intake Total 500 1375 495 Output Total 350 Balance 500 1025 495 Laboratory Tests 06/04/20 03:59 06/04/20 03:59 06/03/20 06/03/20 06/03/20 22:49 23:44 23:44 WBC 12.9 H RBC 4.03 L Hgb 12.3 Hct 37.2 MCV 92.3 MCH 30.5 MCHC 33.1 RDW 14.1 Plt Count 147 L MPV 10.4 Immature Gran % (Auto) Not Reportable Neut % (Auto) Not Reportable Lymph % (Auto) Not Reportable Floyd % (Auto) Not Reportable Eos % (Auto) Not Reportable Baso % (Auto) Not Reportable Lymph # (Auto) Not Reportable Floyd # (Auto) Not Reportable Eos # (Auto) Not Reportable Baso # (Auto) Not Reportable Abs Immat Gran (auto) Not Reportable Absolute Neuts (auto) Not Reportable Absolute Nucleated RBC Not Reportable Total Counted 100 Neutrophils % (Manual) 80 H Band Neutrophils % 13 H Lymphocytes % (Manual) 3.0 L Monocytes % (Manual) 3 Metamyelocytes % 1 Nucleated RBC % Not Reportable Abs Neuts (Manual) 11.99 H Abs Lymphs (Manual) 0.38 L Abs Monocytes (Manual) 0.38 Platelet Estimate Adequate Sodium 140 Potassium 3.5 Chloride 109 H Carbon Dioxide 24 Anion Gap 7 L BUN 24 H Creatinine 1.30 H Estim Creat Clear Calc 5 Estimated GFR 39 L Glucose 121 H Lactic Acid 3.1 H Calcium 8.2 L Magnesium 1.5 L Urine Color Urine Appearance Urine pH Ur Specific Ursa Urine Protein Urine Glucose (UA) Urine Ketones Ur Blood (Man) Urine Nitrate Urine Bilirubin Urine Urobilinogen Leukocyte Esterase Rfl Urine RBC Urine WBC Amorphous Sediment 06/04/20 06/04/20 06/04/20 03:59 03:59 03:59 WBC 19.4 H RBC 3.95 L Hgb 11.9 L Hct 36.3 L MCV 91.9 MCH 30.1 MCHC 32.8 RDW 14.2 Plt Count 149 L MPV 10.7 H Immature Gran % (Auto) Neut % (Auto) Lymph % (Auto) Floyd % (Auto) Eos % (Auto) Baso % (Auto) Lymph # (Auto) Floyd # (Auto) Eos # (Auto) Baso # (Auto) Abs Immat Gran (auto) Absolute Neuts (auto) Absolute Nucleated RBC Total Counted Neutrophils % (Manual) Band Neutrophils % Lymphocytes % (Manual) Monocytes % (Manual) Metamyelocytes % Nucleated RBC % Abs Neuts (Manual) Abs Lymphs (Manual) Abs Monocytes (Manual) Platelet Estimate Sodium 139 Potassium 3.3 L Chloride 107 Carbon Dioxide 26 Anion Gap 6 L BUN 26 H Creatinine 1.50 H Estim Creat Clear Calc 5 Estimated GFR 33 L Glucose 128 H Lactic Acid 3.1 H Calcium 8.2 L Magnesium Urine Color Urine Appearance Urine pH Ur Specific Ursa Urine Protein Urine Glucose (UA) Urine Ketones Ur Blood (Man) Urine Nitrate Urine Bilirubin Urine Urobilinogen Leukocyte Esterase Rfl Urine RBC Urine WBC Amorphous Sediment 06/04/20 06:45 WBC RBC Hgb Hct MCV MCH MCHC RDW Plt Count MPV Immature Gran % (Auto) Neut % (Auto) Lymph % (Auto) Floyd % (Auto) Eos % (Auto) Baso % (Auto) Lymph # (Auto) Floyd # (Auto) Eos # (Auto) Baso # (Auto) Abs Immat Gran (auto) Absolute Neuts (auto) Absolute Nucleated RBC Total Counted Neutrophils % (Manual) Band Neutrophils % Lymphocytes % (Manual) Monocytes % (Manual) Metamyelocytes % Nucleated RBC % Abs Neuts (Manual) Abs Lymphs (Manual) Abs Monocytes (Manual) Platelet Estimate Sodium Potassium Chloride Carbon Dioxide A
--- NOTE | 2020-06-04 14:02 | PC.NURSE ---
This patient, Marium Vera, was transferred to [[id number] ] on 06/04/20 at 1402. Personal belongings sent with patient. Report given to [MARANDA Lozano ]. Appropriate documentation sent with patient.
[2020-06-04] MEDS: SIMVASTATIN 20 MG TABLET 40 MG PO (22:59)
[2020-06-05 06:13] LABS: Hematocrit 37.1 % (37.0-47.0); Hemoglobin 11.8 g/dL (12.0-15.0); Immature Platelet Fraction Pct 5.3 % (0.9-11.2); Mean Corpuscular HGB Conc 31.8 g/dl (32-36); Mean Corpuscular Hemoglobin 30.2 pg (26-34); Mean Corpuscular Volume 94.9 fl (80-100); Mean Platelet Volume 11.3 fl (7.4-10.4); Platelet Count Result 119 k/mm3 (150-375); Red Blood Count 3.91 M/mm3 (4.2-5.4); Red Cell Distribution Width 14.9 % (11.5-14.5); White Blood Count 21.2 K/mm3 (4.5-10.0)
[2020-06-05 06:27] LABS: Anion Gap 6 mmol/L (8-16); Blood Urea Nitrogen 37 mg/dL (7-17); Calcium 7.8 mg/dL (8.4-10.2); Carbon Dioxide 28 mmol/L (22-30); Chloride 105 mmol/L (98-107); Estimated CRCL calculation 37 ml/min; Estimated Glomerular Filt Rate 39; Glucose 93 mg/dL (65-105); Potassium 4.4 mmol/L (3.4-5.0); Sodium 139 mmol/L (137-145)
[2020-06-05 07:33] VITALS: BP 119/50; PULSE 70; RESP 20; TEMP 36.7; O2SAT 94
[2020-06-05 07:44] LABS: Band Neutrophils Percent 13 % (0-6); Lymphocytes Absolute Manual 1.27 K/mm3 (1.1-4.5); Neutrophils Absolute Manual 19.92 K/mm3 (1.7-7.2); Neutrophils Percent Manual 81 % (46-73); Platelet Estimate Decreased (Adequate); Total Cells Counted 100
[2020-06-05] MEDS: ENOXAPARIN 40 MG/0.4 ML SYRINGE SUB-Q (09:27)
[2020-06-05 09:28] VITALS: PULSE 68
[2020-06-05] MEDS: METOPROLOL TARTRATE 50 MG TAB 100 MG PO (09:28)
[2020-06-05] MEDS: ERTAPENEM 1 GM/NS 50 ML 1 GM/50 ML BAG IVPB (11:49)
--- NOTE | 2020-06-05 13:42 | WPDUROPN2 ---
Progress Note: A&P Assessment and Plan (1) Obstruction of left ureteropelvic junction (UPJ) due to stone: Code(s): N20.1 - Calculus of ureter Status: Acute (2) Sepsis: Qualifiers: Sepsis type: sepsis due to unspecified organism Sepsis acute organ dysfunction status: without acute organ dysfunction Qualified Code(s): A41.9 - Sepsis, unspecified organism Code(s): A41.9 - Sepsis, unspecified organism Status: Acute Assessment and Plan: POD#2 s/p ureteroscopy with stent placement - pain improved - fever curve improved with Tm 37.9. Wbc ct elevated at 21.2. Blood cx NGTD; urine cx results pending. Hospitalist added ertapenem yesterday to broaden coverage - good UOP and Cr improved to 1.3 - will continue IV abx and supportive care. In setting of rising wbc ct, will leave jaquez in to maximally decompress the urinary system - daily labs - increase activity Subjective Subjective Date/Time Seen: 06/05/20 13:42 Doing better. Denies any pain other than at IV site which appears normal Review of Systems Constitutional: Constitutional: Reports fatigue Gastrointestinal: Gastrointestinal: Reports no additional gastrointestinal complaints Genitourinary: Genitourinary: Reports as per HPI Exam Const: General: cooperative and comfortable Resp: Effort & Inspection: normal respiratory effort GI: Inspection: normal to inspection GI Palp: No abdominal tenderness : General: Yes no CVA tenderness Urinary Catheter: Urinary Catheter: patent and draining (tifafny urine with sediment) Skin: General skin exam: normal color Rashes: no rashes Objective Data Vital Signs Vital Signs: Vital Signs - 24 hr 06/04/20 15:16 06/04/20 17:00 06/04/20 17:30 Temperature 37.7 C H 37.6 C Pulse Rate 86 77 Respiratory Rate 18 18 Blood Pressure 126/56 L 115/54 L Pulse Oximetry 92 95 95 06/04/20 18:39 06/04/20 19:19 06/04/20 22:03 Temperature 37.6 C 37.9 C H 36.9 C Pulse Rate 69 Respiratory Rate 20 Blood Pressure 106/56 L Pulse Oximetry 93 06/05/20 07:33 06/05/20 09:28 Temperature 36.7 C Pulse Rate 70 68 Respiratory Rate 20 Blood Pressure 119/50 L Pulse Oximetry 94 Intake/Output Intake/Output: Intake & Output 06/02/20 06/03/20 06/04/20 06/05/20 23:59 23:59 23:59 23:59 Intake Total 500 3310 800 Output Total 800 400 Balance 500 2510 400 Meds/Results Medications: Active Medications Generic Name Dose Route Start Last Admin Trade Name Freq PRN Reason Stop Dose Admin Hydrocodone Bitart/Acetaminophen 1 tab 06/03/20 19:04 Hydrocodone/Acetaminophen (*Crx) 5-325 Mg Tablet PO Q4H PRN Pain Rated 1-6 Docusate Sodium 100 mg 06/04/20 09:00 06/05/20 09:30 Docusate Sodium 100 Mg Capsule PO Not Given BID MONICA Enoxaparin Sodium 40 mg 06/04/20 09:30 06/05/20 09:27 Enoxaparin 40 Mg/0.4 Ml Syringe SUB-Q 40 mg DAILY MONICA Administration Hyoscyamine 0.125 mg 06/03/20 19:04 Hyoscyamine Sulfate 0.125 Mg Tablet SUBLINGUAL Q6H PRN Bladder Spasm Cefazolin Sodium 1 gm in 50 mls @ 100 mls/hr 06/04/20 11:00 06/05/20 11:49 Ancef 1 Gm/D5w 50 Ml Pm IVPB Infused Q8H MONICA Infusion Ertapenem 1 gm in 50 mls @ 100 mls/hr 06/04/20 11:00 06/05/20 11:49 Invanz 1 Gm/Ns 50 Ml IVPB 100 mls/hr Q24H MONICA Administration Metoprolol Tartrate 100 mg 06/04/20 09:00 06/05/20 09:28 Metoprolol Tartrate 50 Mg Tab PO 100 mg QAM MONICA Administration Morphine Sulfate 2 mg 06/03/20 19:04 Morphine Sulfate (*Crx) 2 Mg/Ml Inj IV PUSH Q2H PRN Pain Rated 7-10 Naloxone HCl 0.1 mg 06/03/20 19:04 Naloxone Hcl 0.4 Mg/Ml Vial IV PUSH Q2M PRN Opiate Reversal Ondansetron HCl 4 mg 06/03/20 19:04 06/04/20 04:52 Ondansetron Inj 4 Mg/2 Ml Vial IV PUSH 4 mg Q12H PRN Administration Nausea And Vomiting Simvastatin 40 mg 06/03/20 21:00 06/04/20 22:59 Simvastatin 20 Mg Tablet PO 40
[2020-06-05 14:00] VITALS: BP 124/54; PULSE 67; RESP 16; TEMP 36.8; O2SAT 94
--- NOTE | 2020-06-05 15:17 | PM.IMPN ---
Progress Note: A&P Assessment and Plan (1) Obstruction of left ureteropelvic junction (UPJ) due to stone: Code(s): N20.1 - Calculus of ureter Status: Acute Assessment and Plan: s/p Lithotripsy and stent replacement 06/03. Continue antibiotics . (2) Sepsis: Qualifiers: Sepsis type: sepsis due to unspecified organism Sepsis acute organ dysfunction status: without acute organ dysfunction Qualified Code(s): A41.9 - Sepsis, unspecified organism Code(s): A41.9 - Sepsis, unspecified organism Status: Acute Assessment and Plan: w/ fever and tachypnea -, blood cultures, negative but urine still pending but probable obtained after antibiotics started . Continue antibiotics that were started by Urology and and added ertapenem to broaden the scope of coverage 06/04 . (3) Arthritis: Code(s): M19.90 - Unspecified osteoarthritis, unspecified site Status: Acute Assessment and Plan: Continue pain control as needed. (4) HTN (hypertension): Qualifiers: Hypertension type: unspecified Qualified Code(s): I10 - Essential (primary) hypertension Code(s): I10 - Essential (primary) hypertension Status: Chronic Assessment and Plan: blood pressure adequate. resumed metoprolol am 06/04 and continue to hold HS metoprolol. (5) Hyperlipidemia: Qualifiers: Hyperlipidemia type: unspecified Qualified Code(s): E78.5 - Hyperlipidemia, unspecified Code(s): E78.5 - Hyperlipidemia, unspecified Status: Chronic Assessment and Plan: Resume simvastatin PO. (6) Morbid obesity: Code(s): E66.01 - Morbid (severe) obesity due to excess calories Status: Chronic Assessment and Plan: on going. (7) DVT prophylaxis: Code(s): Z29.9 - Encounter for prophylactic measures, unspecified Status: Acute Assessment and Plan: Lovenox and OT and PT to see to start mobilizing Subjective Date/time seen: 06/05/20 15:17 Interval history: date of visit 06/05 . 84-year-old hypertensive obese white female admitted after lithotripsy and stone extraction which she became less responsive 06/03. This a.m. more alert feeling better , sitting in chair no abdominal or flank pain Exam Narrative: Exam Narrative: blood pressure 124/54 pulse is 66 saturating 94% on RA lungs clear but distant breath sounds and poor respiratory effort CV regular rate rhythm no murmurs abdomen is soft bowel sounds may be slightly decreased, nontender extremities no edema distal pulses 1+ neuro alert cooperative no focal deficits Objective Data Vital Signs Vital Signs: Vital Signs - 24 hr 06/04/20 17:00 06/04/20 17:30 06/04/20 18:39 Temperature 37.6 C 37.6 C Pulse Rate 77 Respiratory Rate 18 Blood Pressure 115/54 L Pulse Oximetry 95 95 06/04/20 19:19 06/04/20 22:03 06/05/20 07:33 Temperature 37.9 C H 36.9 C 36.7 C Pulse Rate 69 70 Respiratory Rate 20 20 Blood Pressure 106/56 L 119/50 L Pulse Oximetry 93 94 06/05/20 09:28 06/05/20 14:00 Temperature 36.8 C Pulse Rate 68 67 Respiratory Rate 16 Blood Pressure 124/54 L Pulse Oximetry 94 Intake/Output Intake/Output: Intake & Output 06/02/20 06/03/20 06/04/20 06/05/20 23:59 23:59 23:59 23:59 Intake Total 500 3310 850 Output Total 800 400 Balance 500 2510 450 Meds/Results Medications: Active Medications Generic Name Dose Route Start Last Admin Trade Name Freq PRN Reason Stop Dose Admin Hydrocodone Bitart/Acetaminophen 1 tab 06/03/20 19:04 Hydrocodone/Acetaminophen (*Crx) 5-325 Mg Tablet PO Q4H PRN Pain Rated 1-6 Docusate Sodium 100 mg 06/04/20 09:00 06/05/20 09:30 Docusate Sodium 100 Mg Capsule PO Not Given BID MONICA Enoxaparin Sodium 40 mg 06/04/20 09:30 06/05/20 09:27 Enoxaparin 40 Mg/0.4 Ml Syringe SUB-Q 40 mg DAILY MONICA Administration Hyoscyamine 0.125 mg 06/03/20 19:04
[2020-06-05 18:25] VITALS: BP 113/58; PULSE 69; RESP 18; TEMP 36.7; O2SAT 92
[2020-06-05] MEDS: SIMVASTATIN 20 MG TABLET 40 MG PO (20:11)
[2020-06-05 22:00] VITALS: BP 109/42; PULSE 70; RESP 18; TEMP 37.1; O2SAT 96
[2020-06-06 05:38] LABS: Hematocrit 39.4 % (37.0-47.0); Immature Platelet Fraction Pct 4.6 % (0.9-11.2); Mean Corpuscular HGB Conc 30.5 g/dl (32-36); Mean Corpuscular Hemoglobin 31.6 pg (26-34); Mean Corpuscular Volume 103.7 fl (80-100); Mean Platelet Volume 11.4 fl (7.4-10.4); Platelet Count Result 128 k/mm3 (150-375); Red Cell Distribution Width 15.9 % (11.5-14.5); White Blood Count 18.7 K/mm3 (4.5-10.0)
[2020-06-06 06:00] VITALS: BP 117/46; PULSE 74; RESP 18; TEMP 36.7; O2SAT 96
[2020-06-06 06:03] LABS: Anion Gap 4 mmol/L (8-16); Blood Urea Nitrogen 24 mg/dL (7-17); Carbon Dioxide 28 mmol/L (22-30); Chloride 106 mmol/L (98-107); Estimated CRCL calculation 47 ml/min; Estimated Glomerular Filt Rate 53; Glucose 100 mg/dL (65-105); Potassium 3.8 mmol/L (3.4-5.0); Sodium 138 mmol/L (137-145)
--- NOTE | 2020-06-06 07:03 | WPDUROPN2 ---
Progress Note: A&P Assessment and Plan (1) Obstruction of left ureteropelvic junction (UPJ) due to stone: Code(s): N20.1 - Calculus of ureter Status: Acute (2) Sepsis: Qualifiers: Sepsis type: sepsis due to unspecified organism Sepsis acute organ dysfunction status: without acute organ dysfunction Qualified Code(s): A41.9 - Sepsis, unspecified organism Code(s): A41.9 - Sepsis, unspecified organism Status: Acute Assessment and Plan: Overall, clinically improved. Agree with Dr. Mendoza - likely a UTI that wasn't documented due to delayed collection of urine culture. Blood cultures without growth so far. Perhaps one more day or Ancef/Ertapenem before switch to oral abx. Subjective Subjective Date/Time Seen: 06/06/20 07:03 Improving - feeling better/no pain, afebrile/stable vitals and leukocytosis improved today. Review of Systems Cardiovascular: Cardiovascular: Denies chest pain, Denies lightheadedness, Denies palpitations and Denies dyspnea Respiratory: Respiratory: Denies dyspnea Gastrointestinal: Gastrointestinal: Denies diarrhea, Denies nausea and Denies vomiting Genitourinary: Genitourinary: Denies hematuria and Denies dysuria Endocrine: Endocrine: Denies palpitations Exam Const: General: no acute distress Resp: Effort & Inspection: normal respiratory effort GI: Inspection: non-distended GI Palp: No abdominal tenderness and No Guarding due to palpation present (GI) Auscultation: normal bowel sounds Objective Data Vital Signs Vital Signs: Vital Signs - 24 hr 06/05/20 07:33 06/05/20 09:28 06/05/20 14:00 Temperature 98.1 F 98.3 F Pulse Rate 70 68 67 Respiratory Rate 20 16 Blood Pressure 119/50 L 124/54 L Pulse Oximetry 94 94 06/05/20 18:25 06/05/20 22:00 Temperature 98.1 F 98.8 F Pulse Rate 69 70 Respiratory Rate 18 18 Blood Pressure 113/58 L 109/42 L Pulse Oximetry 92 96 Intake/Output Intake/Output: Intake & Output 06/03/20 06/04/20 06/05/20 06/06/20 23:59 23:59 23:59 23:59 Intake Total 500 3310 1290 50 Output Total 800 1025 Balance 500 2510 265 50 Meds/Results Medications: Active Medications Generic Name Dose Route Start Last Admin Trade Name Freq PRN Reason Stop Dose Admin Hydrocodone Bitart/Acetaminophen 1 tab 06/03/20 19:04 Hydrocodone/Acetaminophen (*Crx) 5-325 Mg Tablet PO Q4H PRN Pain Rated 1-6 Docusate Sodium 100 mg 06/04/20 09:00 06/05/20 17:21 Docusate Sodium 100 Mg Capsule PO Not Given BID MONICA Enoxaparin Sodium 40 mg 06/04/20 09:30 06/05/20 09:27 Enoxaparin 40 Mg/0.4 Ml Syringe SUB-Q 40 mg DAILY MONICA Administration Hyoscyamine 0.125 mg 06/03/20 19:04 Hyoscyamine Sulfate 0.125 Mg Tablet SUBLINGUAL Q6H PRN Bladder Spasm Cefazolin Sodium 1 gm in 50 mls @ 100 mls/hr 06/04/20 11:00 06/06/20 04:50 Ancef 1 Gm/D5w 50 Ml Pm IVPB Infused Q8H MONICA Infusion Ertapenem 1 gm in 50 mls @ 100 mls/hr 06/04/20 11:00 06/05/20 12:20 Invanz 1 Gm/Ns 50 Ml IVPB Infused Q24H MONICA Infusion Metoprolol Tartrate 100 mg 06/04/20 09:00 06/05/20 09:28 Metoprolol Tartrate 50 Mg Tab PO 100 mg QAM MONICA Administration Morphine Sulfate 2 mg 06/03/20 19:04 Morphine Sulfate (*Crx) 2 Mg/Ml Inj IV PUSH Q2H PRN Pain Rated 7-10 Naloxone HCl 0.1 mg 06/03/20 19:04 Naloxone Hcl 0.4 Mg/Ml Vial IV PUSH Q2M PRN Opiate Reversal Ondansetron HCl 4 mg 06/03/20 19:04 06/04/20 04:52 Ondansetron Inj 4 Mg/2 Ml Vial IV PUSH 4 mg Q12H PRN Administration Nausea And Vomiting Simvastatin 40 mg 06/03/20 21:00 06/05/20 20:11 Simvastatin 20 Mg Tablet PO 40 mg HS MONICA Administration Radiology Results: ITS Impressions Retrograde Pyelogram 06/03/20 16:14 IMPRESSION: 1. Fluoroscopy utilized during reported fragmentation of a stone at the left renal pelvis with iatrogenic perforation of the mid left ureter during
[2020-06-06 08:33] VITALS: PULSE 68
[2020-06-06] MEDS: DOCUSATE SODIUM 100 MG CAPSULE PO ×2 (08:33→16:58)
[2020-06-06] MEDS: METOPROLOL TARTRATE 50 MG TAB 100 MG PO (08:33)
[2020-06-06] MEDS: ENOXAPARIN 40 MG/0.4 ML SYRINGE SUB-Q (08:33)
[2020-06-06] MEDS: ERTAPENEM 1 GM/NS 50 ML 1 GM/50 ML BAG IVPB (12:47)
--- NOTE | 2020-06-06 12:59 | PM.IMPN ---
Progress Note: A&P Assessment and Plan (1) Obstruction of left ureteropelvic junction (UPJ) due to stone: Code(s): N20.1 - Calculus of ureter Status: Acute Assessment and Plan: s/p Lithotripsy and stent replacement 06/03. Continue antibiotics . probable d/c jaquez am per urology creatinine 1.0 today. (2) Sepsis: Qualifiers: Sepsis type: sepsis due to unspecified organism Sepsis acute organ dysfunction status: without acute organ dysfunction Qualified Code(s): A41.9 - Sepsis, unspecified organism Code(s): A41.9 - Sepsis, unspecified organism Status: Acute Assessment and Plan: w/ fever and tachypnea -, blood cultures, negative as is urine but urine probable obtained after antibiotics started . Continue antibiotics that were started by Urology and and added ertapenem to broaden the scope of coverage 06/[address] Anderson , could probable d/c 06/07 on oral meds if continues to do well wbc down to 18K today and recheck am. (3) Arthritis: Code(s): M19.90 - Unspecified osteoarthritis, unspecified site Status: Acute Assessment and Plan: Continue pain control as needed. (4) HTN (hypertension): Qualifiers: Hypertension type: unspecified Qualified Code(s): I10 - Essential (primary) hypertension Code(s): I10 - Essential (primary) hypertension Status: Chronic Assessment and Plan: blood pressure adequate. resumed metoprolol am 06/04 and continue to hold HS metoprolol. (5) Hyperlipidemia: Qualifiers: Hyperlipidemia type: unspecified Qualified Code(s): E78.5 - Hyperlipidemia, unspecified Code(s): E78.5 - Hyperlipidemia, unspecified Status: Chronic Assessment and Plan: Resumed simvastatin PO. (6) Morbid obesity: Code(s): E66.01 - Morbid (severe) obesity due to excess calories Status: Chronic Assessment and Plan: on going. (7) DVT prophylaxis: Code(s): Z29.9 - Encounter for prophylactic measures, unspecified Status: Acute Assessment and Plan: Lovenox and OT and PT for mobilizing Subjective Date/time seen: 06/06/20 12:59 Interval history: date of visit 06/06 . 84-year-old hypertensive obese white female admitted after lithotripsy and stone extraction when she became less responsive after procedure 06/03. This a.m. more alert feeling better , sitting in chair no abdominal or flank pain Exam Narrative: Exam Narrative: blood pressure 118/76 pulse is 70 saturating 96% on RA lungs clear but distant breath sounds and poor respiratory effort CV regular rate rhythm no murmurs abdomen is soft bowel sounds may be slightly decreased, nontender, obese extremities no edema distal pulses 1+ neuro alert cooperative no focal deficits Objective Data Vital Signs Vital Signs: Vital Signs - 24 hr 06/05/20 14:00 06/05/20 18:25 06/05/20 22:00 Temperature 36.8 C 36.7 C 37.1 C Pulse Rate 67 69 70 Respiratory Rate 16 18 18 Blood Pressure 124/54 L 113/58 L 109/42 L Pulse Oximetry 94 92 96 06/06/20 06:00 06/06/20 08:33 Temperature 36.7 C Pulse Rate 74 68 Respiratory Rate 18 Blood Pressure 117/46 L Pulse Oximetry 96 Intake/Output Intake/Output: Intake & Output 06/03/20 06/04/20 06/05/20 06/06/20 23:59 23:59 23:59 23:59 Intake Total 500 3310 1290 760 Output Total 800 1025 400 Balance 500 2510 265 360 Meds/Results Medications: Active Medications Generic Name Dose Route Start Last Admin Trade Name Freq PRN Reason Stop Dose Admin Hydrocodone Bitart/Acetaminophen 1 tab 06/03/20 19:04 Hydrocodone/Acetaminophen (*Crx) 5-325 Mg Tablet PO Q4H PRN Pain Rated 1-6 Docusate Sodium 100 mg 06/04/20 09:00 06/06/20 08:33 Docusate Sodium 100 Mg Capsule PO 100 mg BID MONICA Administration Enoxaparin Sodium 40 mg 06/04/20 09:30 06/06/20 08:33 Enoxaparin 40 Mg/0.4 Ml Syringe SUB-Q 40 mg DAILY [facility]
[2020-06-06 20:21] VITALS: BP 114/45; PULSE 74; RESP 18; TEMP 36.9; O2SAT 92
[2020-06-06] MEDS: SIMVASTATIN 20 MG TABLET 40 MG PO (20:45)
[2020-06-07 05:53] LABS: Basophils Absolute Auto 0.1 K/mm3 (0.0-0.1); Basophils Percent Auto 0.6 % (0.2-1.2); Eosinophils Absolute Auto 0.5 K/mm3 (0-0.3); Eosinophils Percent Auto 3.3 % (0-4.4); Hematocrit 36.7 % (37.0-47.0); Immature Granulocyte Absolute 0.16 K/mm3 (0.00-0.031); Immature Granulocyte Percent A 1.1 % (0-0.5); Lymphocytes Absolute Auto 1.85 K/mm3 (0.9-3.2); Mean Corpuscular HGB Conc 32.7 g/dl (32-36); Mean Corpuscular Hemoglobin 30.1 pg (26-34); Monocytes Absolute Auto 0.7 K/mm3 (0.1-0.6); Monocytes Percent Auto 5.1 % (2.6-8.5); Neutrophils Percent Auto 76.9 % (45.5-73.1); Platelet Count Result 143 k/mm3 (150-375); Red Blood Count 3.99 M/mm3 (4.2-5.4); White Blood Count 14.3 K/mm3 (4.5-10.0)
[2020-06-07 06:00] VITALS: BP 146/71; PULSE 80; RESP 16; TEMP 36.4; O2SAT 94
[2020-06-07 06:05] LABS: Anion Gap 5 mmol/L (8-16); Blood Urea Nitrogen 17 mg/dL (7-17); Carbon Dioxide 28 mmol/L (22-30); Chloride 106 mmol/L (98-107); Estimated CRCL calculation 66 ml/min; Estimated Glomerular Filt Rate > 60; Glucose 104 mg/dL (65-105); Potassium 3.8 mmol/L (3.4-5.0); Sodium 139 mmol/L (137-145)
--- NOTE | 2020-06-07 07:31 | WPDUROPN2 ---
Progress Note: A&P Assessment and Plan (1) Obstruction of left ureteropelvic junction (UPJ) due to stone: Code(s): N20.1 - Calculus of ureter Status: Acute (2) Sepsis: Qualifiers: Sepsis type: sepsis due to unspecified organism Sepsis acute organ dysfunction status: without acute organ dysfunction Qualified Code(s): A41.9 - Sepsis, unspecified organism Code(s): A41.9 - Sepsis, unspecified organism Status: Acute Assessment and Plan: Overall, clinically improved. Agree with Dr. Mendoza - likely a UTI that wasn't documented due to delayed collection of urine culture. Blood cultures without growth so far. Perhaps one more day or Ancef/Ertapenem before switch to oral abx. 06/07/2020 Continues to feel well, afebrile and improving WBC. Will D/C Carroll catheter and switch to oral abx. (Chris WAYNE). Anticipate discharge later today or tomorrow. Additional Plan Admission for observation following left ureteroscopy with laser lithotripsy/stent placement left renal stone. Subjective Subjective Date/Time Seen: 06/07/20 07:31 Comfortable, no complaints Review of Systems Cardiovascular: Cardiovascular: Denies chest pain, Denies lightheadedness, Denies palpitations and Denies dyspnea Respiratory: Respiratory: Denies dyspnea Gastrointestinal: Gastrointestinal: Denies diarrhea, Denies nausea and Denies vomiting Genitourinary: Genitourinary: Denies hematuria and Denies dysuria Endocrine: Endocrine: Denies palpitations Exam Const: General: no acute distress Resp: Effort & Inspection: normal respiratory effort GI: Inspection: non-distended GI Palp: No abdominal tenderness and No Guarding due to palpation present (GI) Auscultation: normal bowel sounds Objective Data Vital Signs Vital Signs: Vital Signs - 24 hr 06/06/20 08:33 06/06/20 20:21 06/07/20 06:00 Temperature 98.4 F 97.5 F L Pulse Rate 68 74 80 Respiratory Rate 18 16 Blood Pressure 114/45 L 146/71 H Pulse Oximetry 92 94 Intake/Output Intake/Output: Intake & Output 06/04/20 06/05/20 06/06/20 06/07/20 23:59 23:59 23:59 23:59 Intake Total 3310 1290 1250 100 Output Total 800 1025 875 400 Balance 2510 265 375 -300 Meds/Results Medications: Active Medications Generic Name Dose Route Start Last Admin Trade Name Freq PRN Reason Stop Dose Admin Hydrocodone Bitart/Acetaminophen 1 tab 06/03/20 19:04 Hydrocodone/Acetaminophen (*Crx) 5-325 Mg Tablet PO Q4H PRN Pain Rated 1-6 Docusate Sodium 100 mg 06/04/20 09:00 06/06/20 16:58 Docusate Sodium 100 Mg Capsule PO 100 mg BID MONICA Administration Enoxaparin Sodium 40 mg 06/04/20 09:30 06/06/20 08:33 Enoxaparin 40 Mg/0.4 Ml Syringe SUB-Q 40 mg DAILY MONICA Administration Hyoscyamine 0.125 mg 06/03/20 19:04 Hyoscyamine Sulfate 0.125 Mg Tablet SUBLINGUAL Q6H PRN Bladder Spasm Metoprolol Tartrate 100 mg 06/04/20 09:00 06/06/20 08:33 Metoprolol Tartrate 50 Mg Tab PO 100 mg QAM MONICA Administration Morphine Sulfate 2 mg 06/03/20 19:04 Morphine Sulfate (*Crx) 2 Mg/Ml Inj IV PUSH Q2H PRN Pain Rated 7-10 Naloxone HCl 0.1 mg 06/03/20 19:04 Naloxone Hcl 0.4 Mg/Ml Vial IV PUSH Q2M PRN Opiate Reversal Ondansetron HCl 4 mg 06/03/20 19:04 06/04/20 04:52 Ondansetron Inj 4 Mg/2 Ml Vial IV PUSH 4 mg Q12H PRN Administration Nausea And Vomiting Simvastatin 40 mg 06/03/20 21:00 06/06/20 20:45 Simvastatin 20 Mg Tablet PO 40 mg HS MONICA Administration Trimethoprim/Sulfamethoxazole 1 tab 06/07/20 09:00 Trimethoprim/Sulfamethoxazole 160-800 Mg Ds Tablet PO Q12HR MONICA Trimethoprim/Sulfamethoxazole 1 tab 06/07/20 09:00 Trimethoprim/Sulfamethoxazole 160-800 Mg Ds Tablet PO Q12HR [facility] Radiology Results: ITS Impressions Retrograde Pyelogram 06/03/20 16:14 IMPRESSION: 1. Fluoroscopy utilized during reported fragmentation of
[2020-06-07 09:55] VITALS: PULSE 75
[2020-06-07] MEDS: METOPROLOL TARTRATE 50 MG TAB 100 MG PO (09:55)
[2020-06-07] MEDS: DOCUSATE SODIUM 100 MG CAPSULE PO ×2 (09:56→17:14)
[2020-06-07] MEDS: ENOXAPARIN 40 MG/0.4 ML SYRINGE SUB-Q (09:56)
[2020-06-07 14:00] VITALS: BP 138/43; PULSE 68; RESP 18; TEMP 36.6; O2SAT 94
--- NOTE | 2020-06-07 19:11 | PM.IMPN ---
Progress Note: A&P Assessment and Plan (1) Obstruction of left ureteropelvic junction (UPJ) due to stone: Code(s): N20.1 - Calculus of ureter Status: Acute Assessment and Plan: s/p Lithotripsy and stent replacement 06/03. Carroll removed today but has voided only once. Continue antibiotics. (2) Sepsis: Qualifiers: Sepsis type: sepsis due to unspecified organism Sepsis acute organ dysfunction status: without acute organ dysfunction Qualified Code(s): A41.9 - Sepsis, unspecified organism Code(s): A41.9 - Sepsis, unspecified organism Status: Acute Assessment and Plan: Noted w/ fever, leukocytosis to 21K and tachypnea. UCx negative. BCx NGTD. Urine probable obtained after antibiotics started so may be a false negative culture. WBC better at 14K. Abx adjusted. Patient's family has to travel a long distance so plan discharge in the am. (3) Arthritis: Code(s): M19.90 - Unspecified osteoarthritis, unspecified site Status: Acute Assessment and Plan: Stable. Continue pain control as needed. (4) HTN (hypertension): Qualifiers: Hypertension type: unspecified Qualified Code(s): I10 - Essential (primary) hypertension Code(s): I10 - Essential (primary) hypertension Status: Chronic Assessment and Plan: Patient's blood pressure was reviewed on 06/07 Blood pressure remains well controlled. Resumed metoprolol am 06/04. Will continue current medications. Resume HS metoprolol. (5) Hyperlipidemia: Qualifiers: Hyperlipidemia type: unspecified Qualified Code(s): E78.5 - Hyperlipidemia, unspecified Code(s): E78.5 - Hyperlipidemia, unspecified Status: Chronic Assessment and Plan: Stable. Continue simvastatin. (6) Morbid obesity: Code(s): E66.01 - Morbid (severe) obesity due to excess calories Status: Chronic Assessment and Plan: BMI 48.6. Contributing to her other medical problems. (7) DVT prophylaxis: Code(s): Z29.9 - Encounter for prophylactic measures, unspecified Status: Acute Assessment and Plan: Lovenox Subjective Date/time seen: 06/07/20 19:11 Interval history: date of visit 06/07 84yo female with HTN admitted after lithotripsy and stone extraction when she became less responsive after procedure 06/03. Assuming care. Chart reviewed. Patient complaining flatus but no abdominal pain. No back pain. They removed the Carroll earlier today she has only voided once. She is up walking the bathroom with a walker. No chest pain or shortness of breath. No cough. Exam Narrative: Exam Narrative: AF 97.9 138/43 68 18 94% ra Gen - NARD Chest - few R>L bibasilar inspiratory crackles, nml RR CV - RRR S1/S2 Abd - soft, obese, NT Ext - Prudencio hose in place Psych - nml mood and affect Skin - warm and dry Objective Data Vital Signs Vital Signs: Vital Signs - 24 hr 06/06/20 20:21 06/07/20 06:00 06/07/20 09:55 Temperature 98.4 F 97.5 F L Pulse Rate 74 80 75 Respiratory Rate 18 16 Blood Pressure 114/45 L 146/71 H Pulse Oximetry 92 94 06/07/20 14:00 Temperature 97.9 F Pulse Rate 68 Respiratory Rate 18 Blood Pressure 138/43 L Pulse Oximetry 94 Intake/Output Intake/Output: Intake & Output 06/04/20 06/05/20 06/06/20 06/07/20 23:59 23:59 23:59 23:59 Intake Total 3310 1290 1250 340 Output Total 800 1025 875 400 Balance 2510 265 375 -60 Meds/Results Medications: Active Medications Generic Name Dose Route Start Last Admin Trade Name Freq PRN Reason Stop Dose Admin Hydrocodone Bitart/Acetaminophen 1 tab 06/03/20 19:04 Hydrocodone/Acetaminophen (*Crx) 5-325 Mg Tablet PO Q4H PRN Pain Rated 1-6 Docusate Sodium 100 mg 06/04/20 09:00 06/07/20 17:14 Docusate Sodium 100 Mg Capsule PO 100 mg BID MONICA Administration Enoxaparin Sodium 40 mg 06/04/20 09:30 06/07/20 09:56 E
[2020-06-07] MEDS: SIMVASTATIN 20 MG TABLET 40 MG PO (21:36)
[2020-06-07 21:37] VITALS: PULSE 72
[2020-06-07] MEDS: METOPROLOL TARTRATE 50 MG TAB PO (21:37)
[2020-06-07 22:00] VITALS: BP 137/44; PULSE 76; RESP 16; TEMP 36.3; O2SAT 94
[2020-06-07] MEDS: TOLNAFTATE 1% POWDER 45 GM BTL 1 APPLIC TOPICAL (22:43)
[2020-06-08 06:00] VITALS: BP 142/54; PULSE 72; RESP 18; TEMP 36.1; O2SAT 96
[2020-06-08 08:06] VITALS: PULSE 75
[2020-06-08] MEDS: ENOXAPARIN 40 MG/0.4 ML SYRINGE SUB-Q (08:06)
[2020-06-08] MEDS: DOCUSATE SODIUM 100 MG CAPSULE PO (08:06)
[2020-06-08] MEDS: METOPROLOL TARTRATE 50 MG TAB 100 MG PO (08:06)
[2020-06-08] MEDS: TOLNAFTATE 1% POWDER 45 GM BTL 1 APPLIC TOPICAL (08:08)
--- NOTE | 2020-06-08 12:24 | PM.DS ---
DS: Admitting Diagnosis Admitting Diagnosis Admitting Diagnosis: poss sepsis DS: Discharge Diagnosis Discharge Diagnosis (1) Obstruction of left ureteropelvic junction (UPJ) due to stone: Code(s): N20.1 - Calculus of ureter Status: Acute Assessment and Plan: s/p Cystoscopy with left stent removal and replacement with laser lithotripsy left renal stone on 06/03. Carroll was able to be removed and patient voiding well. (2) Sepsis: Qualifiers: Sepsis type: sepsis due to unspecified organism Sepsis acute organ dysfunction status: without acute organ dysfunction Qualified Code(s): A41.9 - Sepsis, unspecified organism Code(s): A41.9 - Sepsis, unspecified organism Status: Acute Assessment and Plan: Noted w/ fever, leukocytosis to 21K and tachypnea. UCx negative. BCx NGTD. Urine probable obtained after antibiotics started so may be a false negative culture. WBC trended down. (3) Arthritis: Code(s): M19.90 - Unspecified osteoarthritis, unspecified site Status: Acute Assessment and Plan: Stable. We continued pain control as needed. (4) HTN (hypertension): Qualifiers: Hypertension type: unspecified Qualified Code(s): I10 - Essential (primary) hypertension Code(s): I10 - Essential (primary) hypertension Status: Chronic Assessment and Plan: Patient's blood pressure was reviewed on 06/08 Blood pressure remains well controlled. Resumed metoprolol and BP remained stable (5) Hyperlipidemia: Qualifiers: Hyperlipidemia type: unspecified Qualified Code(s): E78.5 - Hyperlipidemia, unspecified Code(s): E78.5 - Hyperlipidemia, unspecified Status: Chronic Assessment and Plan: Stable. We continued simvastatin. (6) Morbid obesity: Code(s): E66.01 - Morbid (severe) obesity due to excess calories Status: Chronic Assessment and Plan: BMI 48.6. Contributing to her other medical problems. DS: Summary Hospital Course Reason for hospitalization: 84yo female here for Cystoscopy with left stent removal and replacement who developed somnolence and sepsis symptoms post-procedure. Please see H&P for details. Hospital Course: As above Status at Discharge Cognitive/behavioral status at discharge: PATIENT STABLE FOR DISCHARGE Time Spent with Patient Time attestation: Total time spent providing and/or coordinating discharge services: 34 minutes Time spent: Greater than 30 minutes Exam Narrative: Exam Narrative: AF 97.0 142/54 75 18 96% ra Gen - NARD sitting up in chair Chest - few scattered rhonchi, nml RR CV - RRR S1/S2 Abd - soft, obese, NT Ext - Prudencio hose in place Psych - nml mood and affect Skin - warm and dry DS: Data Data Completed and Pending Labs on day of discharge: Preliminary micro results at discharge 06/03/20 23:44 Blood Culture - Preliminary Blood 06/03/20 23:44 Blood Culture - Preliminary Blood Discharge Plan Discharge Attending physician on discharge: Iliana Linares Consulting providers: Abisai Cruz ; Esteban Sarmiento Discharging Clinician: Gabbi Nair Anticipated Discharge Date/Time: 06/08/20 13:00 Patient Disposition: Home, Self-Care Activity: may shower Diet: as tolerated Discharge Instructions: 1) Activity: No driving or important decisions [id number]. No lifting/straining >15lbs. [id number]. 2) Strain urine until one stone fragment retrieved. Bring that fragment to your follow-up visit. 3) Diet: resume normal pre-admission diet. 4) Follow-up: 2-3 weeks with [facility] / call for appointment ([phone]) Patient Instructions: Urinary Tract Infection in Women (DC), Pain Management (DC), Carroll Catheter Placement and Care (DC), Fall Prevention (DC), Cystoscopy (DC), Ureteral Stent Placement (DC) Stand Alone Forms: General Discharge Instructions Follow-up/Referrals: Evelyn*,Joey
--- NOTE | 2020-06-08 12:48 | PC.NURSE ---
Contacted Dr. Anderson in regards to the patients Oxybutnin at this time per Dr. Anderson continue to medication as prescribed.
--- NOTE | 2020-06-08 13:20 | WPDUROPN2 ---
Progress Note: A&P Assessment and Plan (1) Morbid obesity: Code(s): E66.01 - Morbid (severe) obesity due to excess calories Status: Chronic Assessment and Plan: Continues to feel well, afebrile and improving WBC. Plan discharge on oral abx. (Chris WAYNE). Anticipate discharge later today follow as outpatient for stent removal . (2) Hyperlipidemia: Qualifiers: Hyperlipidemia type: unspecified Qualified Code(s): E78.5 - Hyperlipidemia, unspecified Code(s): E78.5 - Hyperlipidemia, unspecified Status: Chronic (3) Obstruction of left ureteropelvic junction (UPJ) due to stone: Code(s): N20.1 - Calculus of ureter Status: Acute Subjective Subjective Date/Time Seen: 06/08/20 13:20 pt feeling better Exam Const: General: comfortable and no acute distress Eyes: General: appearance normal, both eyes and all related structures Resp: Effort & Inspection: normal respiratory effort Objective Data Vital Signs Vital Signs: Vital Signs - 24 hr 06/07/20 14:00 06/07/20 21:37 06/07/20 22:00 Temperature 36.6 C 36.3 C L Pulse Rate 68 72 76 Respiratory Rate 18 16 Blood Pressure 138/43 L 137/44 L Pulse Oximetry 94 94 06/08/20 06:00 06/08/20 08:06 Temperature 36.1 C L Pulse Rate 72 75 Respiratory Rate 18 Blood Pressure 142/54 H Pulse Oximetry 96 Intake/Output Intake/Output: Intake & Output 06/05/20 06/06/20 06/07/20 06/08/20 23:59 23:59 23:59 23:59 Intake Total 1290 1250 585 560 Output Total 1025 875 400 300 Balance 265 375 185 260 Meds/Results Medications: Active Medications Generic Name Dose Route Start Last Admin Trade Name Freq PRN Reason Stop Dose Admin Hydrocodone Bitart/Acetaminophen 1 tab 06/03/20 19:04 Hydrocodone/Acetaminophen (*Crx) 5-325 Mg Tablet PO Q4H PRN Pain Rated 1-6 Docusate Sodium 100 mg 06/04/20 09:00 06/08/20 08:06 Docusate Sodium 100 Mg Capsule PO 100 mg BID MONICA Administration Enoxaparin Sodium 40 mg 06/04/20 09:30 06/08/20 08:06 Enoxaparin 40 Mg/0.4 Ml Syringe SUB-Q 40 mg DAILY MONICA Administration Hyoscyamine 0.125 mg 06/03/20 19:04 Hyoscyamine Sulfate 0.125 Mg Tablet SUBLINGUAL Q6H PRN Bladder Spasm Metoprolol Tartrate 100 mg 06/04/20 09:00 06/08/20 08:06 Metoprolol Tartrate 50 Mg Tab PO 100 mg QAM MONICA Administration Metoprolol Tartrate 50 mg 06/07/20 21:00 06/07/20 21:37 Metoprolol Tartrate 50 Mg Tab PO 50 mg HS MONICA Administration Morphine Sulfate 2 mg 06/03/20 19:04 Morphine Sulfate (*Crx) 2 Mg/Ml Inj IV PUSH Q2H PRN Pain Rated 7-10 Naloxone HCl 0.1 mg 06/03/20 19:04 Naloxone Hcl 0.4 Mg/Ml Vial IV PUSH Q2M PRN Opiate Reversal Ondansetron HCl 4 mg 06/03/20 19:04 06/04/20 04:52 Ondansetron Inj 4 Mg/2 Ml Vial IV PUSH 4 mg Q12H PRN Administration Nausea And Vomiting Simvastatin 40 mg 06/03/20 21:00 06/07/20 21:36 Simvastatin 20 Mg Tablet PO 40 mg HS MONICA Administration Tolnaftate 1 applic 06/07/20 22:05 06/08/20 08:08 Tolnaftate 1% Powder 45 Gm Btl TOPICAL 1 applic Q12HR MONICA Administration Trimethoprim/Sulfamethoxazole 1 tab 06/07/20 09:00 06/08/20 08:06 Trimethoprim/Sulfamethoxazole 160-800 Mg Ds Tablet PO 1 tab Q12HR MONICA Administration Radiology Results: ITS Impressions Retrograde Pyelogram 06/03/20 16:14 IMPRESSION: 1. Fluoroscopy utilized during reported fragmentation of a stone at the left renal pelvis with iatrogenic perforation of the mid left ureter during the procedure. The location of the perforation is successfully spanned by a new left internal ureteral stent which is in expected position at the conclusion of the procedure. See procedure note for further detail. Chest X-Ray 06/03/20 17:37 IMPRESSION: 1. Mild atelectasis in right perihilar region.
== END 2020-06-08 14:45 | disposition home or self-care (01) | DRG 854 ==
LOC: ANHIMU 20:17 → ANH2MED 06-06 12:43 → ANHIMU 08-08 06:28
PROVIDERS: Family Medicine; Admitting Provider Urology; PCP Internal Medicine; Visit Provider Internal Medicine
PROC: 0T778DZ Dilation of Left Ureter with Intraluminal Device, Via Natural or Artificial Opening Endoscopic (ICD-10-PCS; CPT 52352; principal; 2020-06-03 13:30)
DX: A41.9 Sepsis, unspecified organism (principal); N20.1 Calculus of ureter; Z68.42 Body mass index [BMI] 45.0-49.9, adult; S37.13XA Laceration of ureter, initial encounter; Y83.8 Other surgical procedures as the cause of abnormal reaction of the patient, or of later complication, without mention of misadventure at the time of the procedure; E66.01 Morbid (severe) obesity due to excess calories; R40.0 Somnolence; M19.90 Unspecified osteoarthritis, unspecified site; I10 Essential (primary) hypertension; E78.5 Hyperlipidemia, unspecified
CPT/HCPCS: 36415; 71045; 74420; 80048; 81001; 83605; 83735; 85025; 85027; 85055; 87040; 87086; 97110; 97116; 97161; 97166; 97535; A9270; C1769; C1894; C2617; J0131; J0690; J1335; J1650; J1885; J2405; J2550; J2704; J3010; J3475; J7120; J7121; Q9966